=== PATIENT | female | born 1995 | race Caucasian/White ===

== ENCOUNTER → 2021-11-29 15:43 | Outpatient (CLI) | payer OTHER, SELFPAY ==
[2021-11-29 17:39] LABS: Add Manual Diff / Slide Review NO; Basophils Absolute Auto 0 /uL (0-100); Basophils Percent Auto 0.4 % (0-2); Eosinophils Absolute Auto 200 /uL (0-450); Eosinophils Percent Auto 1.6 % (2-4); Hematocrit 34.4 % (36-46); Hemoglobin 11.9 g/dL (12.0-16.0); Lymphocytes Absolute Auto 1900 /uL (1100-4500); Lymphocytes Percent Auto 16.8 % (25-40); Mean Corpuscular HGB Conc 34.6 % (30-36); Mean Corpuscular Hemoglobin 30.3 PG (26-34); Mean Corpuscular Volume 87.5 fL (80-100); Monocytes Absolute Auto 600 /uL (0-900); Monocytes Percent Auto 5.7 % (3-14); Neutrophils Absolute Auto 8400 /uL (1500-7000); Neutrophils Percent Auto 75.5 % (50-75); Platelet Count 316 X10^3/uL (150-400); Red Blood Cell Count 3.93 X10^6/uL (4.0-5.2); Red Cell Distribution Width 12.5 % (11.6-14.8); White Blood Cell Count 11.1 X10^3/uL (4.5-11.0)
[2021-11-30 06:12] LABS: RPR Screen Non Reactive (Non Reactive)
[2021-11-30 07:57] LABS: Varicella IgG Antibody 1102 index (Immune >165)
[2021-12-01 22:51] LABS: HIV 1 & 2 Ab/Ag 4th Gen Combo NEGATIVE (NEGATIVE); Hep C Virus Ab w/Reflex Quant NEGATIVE s/c (NEGATIVE); Hepatitis B Surface Antigen NEGATIVE s/c (NEGATIVE); Rubella Antibody IgG 41.7 IU/mL (>15)
== END ==
PROVIDERS: PCP Physician Assistant; Referring Provider Obstetrics & Gynecology; Visit Provider Obstetrics & Gynecology
DX: Z34.00 Encounter for supervision of normal first pregnancy, unspecified trimester (principal)
CPT/HCPCS: 36415; 80055; 86787; 86803; 86850; 86900; 86901; 87389

== ENCOUNTER → 2022-01-24 12:13 | Outpatient (CLI) | payer OTHER, SELFPAY ==
[2022-01-26 19:47] LABS: AFP, Serum 70.6 ng/mL (.); Estriol, Free 1.36 ng/mL (.); Inhibin A, Dimeric 154.56 pg/mL (.); Inhibin A, MoM 1.03 (.); Maternal Ethnicity Caucasian (.); Maternal Weight 168 lbs (.); Number of Fetuses No (.); OSBR Risk 1 IN 2965 (.); Results Report (.); Test Results *Screen Negative* (.); hCG, Serum 10174 mIU/mL (.)
== END ==
PROVIDERS: PCP Physician Assistant; Referring Provider Obstetrics & Gynecology; Visit Provider Obstetrics & Gynecology
DX: Z34.90 Encounter for supervision of normal pregnancy, unspecified, unspecified trimester (principal); Z3A.16 16 weeks gestation of pregnancy
CPT/HCPCS: 36415; 82105; 82677; 84702; 86336

== ENCOUNTER → 2022-02-22 07:17 | Outpatient (CLI) | payer OTHER, SELFPAY ==
--- NOTE | 2022-02-22 07:18 | DI.US.S_ITS ---
PROCEDURE: US OB >= 14 WEEKS FETUS INDICATIONS: 20 wk anatomy scan OUTSIDE/PRIOR DATING DATA: Last menstrual period (LMP): 09/14/2021. LMP-based estimated date of delivery (ELAINE): 06/21/2022. A first-trimester ultrasound from 11/18/2021 is available. The report from that time indicates an unknown last menstrual period and an estimated date of delivery of 07/05/2022 based on crown-rump length. TECHNIQUE: Real-time scanning was performed of the fetus, with image documentation and biometric measurements. Endovaginal scanning: Not performed COMPARISON: [facility], US, US OB < 14 WEEKS + OB TRANSVAG, 11/18/2021, 7:14. FINDINGS: General: A single living intrauterine gestation is present. Presentation: Cephalic. Placenta: Placental position is anterior , without previa. Amniotic fluid index: 15.3 cm, normal range is 5-24 cm. Single deepest vertical pocket is 4.2 cm. heart rate: 157 beats per minute. Maternal cervical canal: 3.2 cm long. Normal lower limit is 2.5 cm. biometrics: Biparietal diameter: 5.05 centimeters, 21 weeks 2 days Head circumference: 19.63 centimeters, 21 weeks 6 days Abdominal circumference: 16.63 centimeters, 21 weeks 5 days Femur length: 3.64 centimeters, 21 weeks 4 days Clinically estimated gestational age: 23 weeks 0 days Composite gestational age from present scan: 21 weeks 4 days Estimated weight and percentile: 438 grams, 4th percentile for 23 weeks gestational age. Anatomic survey: Neuro: Ventricles are non-dilated at less than 10 mm. Cisterna magna is normal at 3-11 mm. Cerebellum is normal in size and morphology. Nuchal skin fold: Normal at less than 6 mm between 14-21 weeks gestational age. Face: Nose and lips, facial profile are normal. Spine: No evidence for spina bifida. Heart: 4-chambered heart is present, with normal ventricular outflow tracts. Diaphragm: Diaphragm is intact. Stomach: Left-sided stomach is present. Kidneys: No hydronephrosis. Normal is less than 5 mm in 2nd trimester, less than 7 mm in 3rd trimester. Cord: 3-vessel cord has orthotopic insertion. Bladder: Normal in size. Extremities: All 4 extremities identified. IMPRESSION: 1. Single living intrauterine . 2. Estimated delivery date of 07/05/2022 per the 1st trimester ultrasound performed 11/18/2021. This corresponds to a gestational age of 21 weeks 0 days. By LMP, gestational age is 23 weeks 0 days. 3. Estimated weight of 438 grams. For gestational age of 23 weeks 0 days, and this is at the 4th percentile. 4. Normal second trimester anatomy survey. No anomalies detected at this time. We strive to produce accurate, complete, and clear reports of imaging services. To assist us in improving patient care, this report was composed using standard report templates and voice recognition software. Therefore, it may contain abnormal punctuation, insertions and/or omissions. Occasional wrong-word or sound-alike substitutions may occur. Though we review the report and make efforts to correct it, we do recommend that the report be read carefully in proper context to recognize any text inaccuracies. Dictated by: Luis Mcginnis M.D. on 02/22/2022 at 9:23 Approved by: Luis Mcginnis M.D. on 02/22/2022 at 10:19
== END ==
PROVIDERS: PCP Physician Assistant; Referring Provider Obstetrics & Gynecology; Visit Provider Obstetrics & Gynecology
DX: Z34.02 Encounter for supervision of normal first pregnancy, second trimester (principal); Z3A.20 20 weeks gestation of pregnancy
CPT/HCPCS: 76811

== ENCOUNTER → 2022-03-22 08:59 | Outpatient (CLI) | payer OTHER, SELFPAY ==
[2022-03-22 10:34] LABS: Hematocrit 28.2 % (36-46); Hemoglobin 9.9 g/dL (12.0-16.0)
[2022-03-22 10:57] LABS: GTT (PREG) 1 Hour PP 50gm Dose 140 mg/dL (76-139)
== END ==
PROVIDERS: PCP Physician Assistant; Referring Provider Obstetrics & Gynecology; Visit Provider Obstetrics & Gynecology
DX: Z34.01 Encounter for supervision of normal first pregnancy, first trimester (principal); Z3A.26 26 weeks gestation of pregnancy
CPT/HCPCS: 36415; 82950; 85014; 85018

== ENCOUNTER → 2022-03-28 11:28 | Outpatient (CLI) | payer OTHER, SELFPAY ==
[2022-03-28 13:51] LABS: Appearance Urine UA CLEAR; Bilirubin Urine UA NEGATIVE (NEGATIVE); Color Urine UA YELLOW; Glucose Urine UA NEGATIVE (Negative); Ketones Urine UA NEGATIVE (NEGATIVE); Leukocyte Esterase Urine UA 1+ (NEGATIVE); Nitrite Urine UA NEGATIVE (Negative); Occult Blood Urine UA 1+ (Negative); Protein Urine UA NEGATIVE (Negative); Urobilinogen Urine UA 0.2 E.U./dL (0.2)
[2022-03-28 14:02] LABS: Bacteria Urine None Seen; Culture Indicated Urine Cult Not Indicated; RBC Urine 1-5/HPF (0-5/HPF); Squamous Epithelial Cell Urine 10-30 /HPF (0-5/HPF); WBC Urine 1-5/HPF (0-5/HPF)
[2022-03-28 15:17] LABS: Urine N gonorrhoeae NOT DETECTED
[2022-03-28 15:59] LABS: Urine Chlamydia NOT DETECTED
== END ==
PROVIDERS: PCP Physician Assistant; Visit Provider Obstetrics & Gynecology
DX: Z34.02 Encounter for supervision of normal first pregnancy, second trimester (principal); Z11.3 Encounter for screening for infections with a predominantly sexual mode of transmission
CPT/HCPCS: 81003; 81015; 87086; 87491; 87591

== ENCOUNTER → 2022-04-03 07:38 | Outpatient (CLI) | payer OTHER, SELFPAY ==
[2022-04-03 09:04] LABS: Glucose Fasting Gestational 77 mg/dL (76-95)
[2022-04-03 09:38] LABS: Glucose 1 Hour Gest 163 mg/dL (76-180)
[2022-04-03 11:14] LABS: Glucose Tol Interp,Gestational INTERPRETATION
[2022-04-03 12:09] LABS: Glucose 3 Hour Gest 114 mg/dL (76-140)
[2022-04-03 12:19] LABS: Glucose 2 Hour Gest 115 mg/dL (76-155)
== END ==
PROVIDERS: PCP Physician Assistant; Referring Provider Obstetrics & Gynecology; Visit Provider Obstetrics & Gynecology
DX: O99.810 Abnormal glucose complicating pregnancy (principal)
CPT/HCPCS: 36415; 82951; 82952

== ENCOUNTER 2022-06-07 18:11 | Outpatient (CLI) | payer OTHER, SELFPAY ==
[2022-06-07 18:55] LABS: Add Manual Diff / Slide Review NO; Basophils Absolute Auto 0 /uL (0-100); Basophils Percent Auto 0.3 % (0-2); Eosinophils Absolute Auto 200 /uL (0-450); Eosinophils Percent Auto 1.3 % (2-4); Hematocrit 30.3 % (36-46); Hemoglobin 10.3 g/dL (12.0-16.0); Lymphocytes Absolute Auto 2500 /uL (1100-4500); Lymphocytes Percent Auto 18.1 % (25-40); Mean Corpuscular HGB Conc 34.1 % (30-36); Mean Corpuscular Hemoglobin 29.9 PG (26-34); Mean Corpuscular Volume 87.6 fL (80-100); Monocytes Absolute Auto 900 /uL (0-900); Monocytes Percent Auto 6.4 % (3-14); Neutrophils Absolute Auto 10300 /uL (1500-7000); Neutrophils Percent Auto 73.9 % (50-75); Platelet Count 305 X10^3/uL (150-400); Red Blood Cell Count 3.46 X10^6/uL (4.0-5.2); Red Cell Distribution Width 13.7 % (11.6-14.8); White Blood Cell Count 13.9 X10^3/uL (4.5-11.0)
[2022-06-07 19:10] LABS: Alanine Aminotransferase 40 IU/L (<35); Albumin 3.7 g/dL (3.5-5.0); Albumin Globulin Ratio 1.1 (1.0-2.8); Alkaline Phosphatase 145 U/L (38-126); Aspartate Aminotransferase 29 IU/L (14-36); Bilirubin Total 0.4 mg/dL (0.2-1.3); Bilirubin Unconjugated 0.4 mg/dL (0.0-1.1); Globulin 3.4 g/dL (1.7-4.1); HEMOLYSIS < 15 (0-50); Total Protein 7.1 g/dL (6.3-8.2)
[2022-06-07 19:11] LABS: Uric Acid 5.1 mg/dL (2.5-6.2)
--- NOTE | 2022-06-07 19:33 | P.TNLD_ITS ---
Visit Information Visit Information Date of evaluation: 06/07/22 Primary OB Provider: Gabo Del Cid On-call OB Provider: Gabo Del Cid Reason for Evaluation: Yes other Comments/Additional reasons for admission: 27 yo G1 at 37+0 weeks EGA w/ headache, elevated BP (140/90) at home. Patient has a history of ocular migraines but has never taken migraine-specific mediations. Headache is markedly improved and she denies visual changes, or RUQ pain/tenderness. Vital Signs Vital Signs: 108/66, 112. 36.1C [facility] Medical History (Updated 06/07/22 @ 19:50 by Gabo Del Cid MD) Anxiety Asthma Chicken pox Migraines Motion sickness Surgical History (Updated 11/29/21 @ 17:06 by Gabo Del Cid MD) History of throat surgery History of tonsillectomy History of wisdom tooth extraction Ingrown toenail Family History (Updated 11/29/21 @ 17:08 by Gabo Del Cid MD) Mother Hypertension Sister Seizures Father Hypertension Social History marital status: number of children: 0 household members: spouse lives independently: Yes housing: house (base housing) pets and animals: Yes (Dog, Cat - will do litter box) education level: college occupational status: employed ([employer] working for ) current occupational exposures/hazards: No special terri needs: No seatbelt use: always water heater temp set < 120 deg: Yes working smoke detector in home: Yes fire extinguisher in home: Yes carbon monox detector in home: Yes firearms in home: No do you feel safe at home: Yes Smoking Status: Former smoker (In college) second hand exposure: No alcohol intake: former substance use type: does not use during the past year weight has: remained stable well-balanced diet: about half the time daily servings fruits/ve-1 caffeine: Yes (200mg per day) Type(s) of exercise: walking Exam HENMT Head: normal to inspection, normocephalic and atraumatic Eyes General: appearance normal, both eyes and all related structures Resp Effort & Inspection: normal respiratory effort and able to speak in complete sentences Auscultation: clear to auscultation bilaterally Cardio Rate: regular rate Rhythm: regular rhythm Heart Sounds: S1 normal, S2 normal and no murmurs GI Inspection: normal to inspection Palpation: soft and no hepatosplenomegaly Extrem Right lower extremity: normal to inspection Objective Labs Result Diagrams: 06/07/22 18:40 Labs: Laboratory Results - last 24 hr 06/07/22 06/07/22 06/07/22 18:40 18:40 18:40 WBC 13.9 H RBC 3.46 L Hgb 10.3 L Hct 30.3 L MCV 87.6 MCH 29.9 MCHC 34.1 RDW 13.7 Plt Count 305 Neut % (Auto) 73.9 Lymph % (Auto) 18.1 L Liberty % (Auto) 6.4 Eos % (Auto) 1.3 L Baso % (Auto) 0.3 Neut # (Auto) 31048 H Lymph # (Auto) 2500 Liberty # (Auto) 900 Eos # (Auto) 200 Baso # (Auto) 0 Uric Acid 5.1 Total Bilirubin 0.4 Conjugated Bilirubin 0.0 Unconjugated Bilirubin 0.4 AST 29 ALT 40 H Alkaline Phosphatase 145 H Total Protein 7.1 Albumin 3.7 Globulin 3.4 Albumin/Globulin Ratio 1.1 Evaluation Evaluation Baseline heart rate: 135 Variability: Moderate (11-25) monitor accelerations: Present Monitor Decelerations: Absent Uterine Contraction Intensity: Mild Category of Tracing: Reactive Status: Category l Diagnosis, Plan/Disposition Final Diagnosis (1) Ocular migraine: Status: Acute (2) : Status: Acute (3) Elevated liver transaminase level: Status: Acute Plan/Disposition Plan: PIH/PEC labs drawn and are gabby execpt for marginally elevated ALT. F/U scheduled for 06/09/2022 and will recheck BP, labs at that time. OB Disposition: home
[2022-06-07 19:48] LABS: Creatinine Urine Random 39.4 mg/dL; Protein (Total) Urine Random 18 mg/dL (0-12); Protein Creatinine Ratio Urine 0.45 GRAM/24H
== END 2022-06-07 19:52 | disposition home or self-care (01) ==
LOC: OB 06-09 08:03
PROVIDERS: PCP Physician Assistant; Referring Provider Obstetrics & Gynecology; Visit Provider Obstetrics & Gynecology
DX: O26.893 Other specified pregnancy related conditions, third trimester (principal); G43.B0 Ophthalmoplegic migraine, not intractable; R74.01 Elevation of levels of liver transaminase levels; R03.0 Elevated blood-pressure reading, without diagnosis of hypertension; Z3A.37 37 weeks gestation of pregnancy
CPT/HCPCS: 59025; 59050; 80076; 82570; 84156; 84550; 85025; G0378; G0379

== ENCOUNTER → 2022-06-09 16:34 | Outpatient (CLI) | payer OTHER, SELFPAY ==
[2022-06-10 14:07] LABS: Strep Grp B PCR NEG for Grp B Strep
== END ==
PROVIDERS: PCP Physician Assistant; Visit Provider Obstetrics & Gynecology
DX: Z34.03 Encounter for supervision of normal first pregnancy, third trimester (principal); Z3A.36 36 weeks gestation of pregnancy
CPT/HCPCS: 87653

== ENCOUNTER → 2022-06-16 15:13 | Outpatient (CLI) | payer OTHER, SELFPAY ==
[2022-06-16 15:58] LABS: Protein (Total) Urine Random 18 mg/dL (0-12); Protein Creatinine Ratio Urine 0.17 GRAM/24H
[2022-06-16 18:09] LABS: Add Manual Diff / Slide Review NO; Basophils Absolute Auto 0 /uL (0-100); Basophils Percent Auto 0.2 % (0-2); Eosinophils Absolute Auto 100 /uL (0-450); Eosinophils Percent Auto 0.5 % (2-4); Hematocrit 31.5 % (36-46); Hemoglobin 10.8 g/dL (12.0-16.0); Lymphocytes Absolute Auto 2300 /uL (1100-4500); Lymphocytes Percent Auto 16.2 % (25-40); Mean Corpuscular HGB Conc 34.5 % (30-36); Mean Corpuscular Hemoglobin 30.4 PG (26-34); Mean Corpuscular Volume 88.3 fL (80-100); Monocytes Absolute Auto 900 /uL (0-900); Monocytes Percent Auto 6.2 % (3-14); Neutrophils Absolute Auto 10700 /uL (1500-7000); Neutrophils Percent Auto 76.9 % (50-75); Platelet Count 331 X10^3/uL (150-400); Red Blood Cell Count 3.57 X10^6/uL (4.0-5.2); Red Cell Distribution Width 14.4 % (11.6-14.8); White Blood Cell Count 13.9 X10^3/uL (4.5-11.0)
[2022-06-16 18:24] LABS: Alanine Aminotransferase 46 IU/L (<35); Albumin 3.7 g/dL (3.5-5.0); Albumin Globulin Ratio 1.1 (1.0-2.8); Alkaline Phosphatase 162 U/L (38-126); Aspartate Aminotransferase 34 IU/L (14-36); Bilirubin Total 0.4 mg/dL (0.2-1.3); Bilirubin Unconjugated 0.4 mg/dL (0.0-1.1); Globulin 3.4 g/dL (1.7-4.1); HEMOLYSIS < 15 (0-50); Total Protein 7.1 g/dL (6.3-8.2); Uric Acid 6.2 mg/dL (2.5-6.2)
== END ==
PROVIDERS: PCP Physician Assistant; Referring Provider Obstetrics & Gynecology; Visit Provider Obstetrics & Gynecology
DX: R03.0 Elevated blood-pressure reading, without diagnosis of hypertension (principal); R74.01 Elevation of levels of liver transaminase levels
CPT/HCPCS: 36415; 80076; 82570; 84156; 84550; 85025

== ENCOUNTER → 2022-06-22 14:19 | Outpatient (CLI) | payer OTHER, SELFPAY | PROVIDERS: PCP Physician Assistant; Visit Provider Obstetrics & Gynecology | DX: Z34.03 Encounter for supervision of normal first pregnancy, third trimester (principal); Z3A.38 38 weeks gestation of pregnancy | CPT/HCPCS: 87086 ==

== ENCOUNTER 2022-07-04 01:19 | Inpatient (IN) | payer OTHER, SELFPAY ==
[2022-07-04] MEDS: LACTATED RINGERS 1,000 ML 100 ML IV (02:45)
[2022-07-04 03:03] VITALS: BP 128/83
[2022-07-04 03:03] LABS: Add Manual Diff / Slide Review NO; Basophils Absolute Auto 0 /uL (0-100); Basophils Percent Auto 0.3 % (0-2); Eosinophils Absolute Auto 0 /uL (0-450); Eosinophils Percent Auto 0.1 % (2-4); Hematocrit 32.1 % (36-46); Hemoglobin 10.7 g/dL (12.0-16.0); Lymphocytes Absolute Auto 1900 /uL (1100-4500); Lymphocytes Percent Auto 14.4 % (25-40); Mean Corpuscular HGB Conc 33.2 % (30-36); Mean Corpuscular Hemoglobin 29.5 PG (26-34); Mean Corpuscular Volume 88.7 fL (80-100); Monocytes Absolute Auto 700 /uL (0-900); Monocytes Percent Auto 5.2 % (3-14); Neutrophils Absolute Auto 10700 /uL (1500-7000); Platelet Count 321 X10^3/uL (150-400); Red Blood Cell Count 3.62 X10^6/uL (4.0-5.2); Red Cell Distribution Width 14.6 % (11.6-14.8); White Blood Cell Count 13.4 X10^3/uL (4.5-11.0)
[2022-07-04 03:06] LABS: Alanine Aminotransferase 77 IU/L (<35); Albumin 3.7 g/dL (3.5-5.0); Alkaline Phosphatase 220 U/L (38-126); Aspartate Aminotransferase 51 IU/L (14-36); BUN Creatinine Ratio 9.5 (6-22); Bilirubin Total 0.7 mg/dL (0.2-1.3); Blood Urea Nitrogen 6 mg/dL (7-17); Calcium 8.6 mg/dL (8.4-10.2); Carbon Dioxide 19 mmol/L (22-32); Chloride 105 mmol/L (98-107); Estimated Glomerular Filt Rate > 60 mL/min (>60); Globulin 3.6 g/dL (1.7-4.1); Glucose 90 mg/dL (70-100); HEMOLYSIS < 15 (0-50); Potassium 3.6 mmol/L (3.4-5.1); Sodium 133 mmol/L (137-145); Total Protein 7.3 g/dL (6.3-8.2)
[2022-07-04 04:13] LABS: COVID19 -Nasal RAPID Negative (Negative)
--- NOTE | 2022-07-04 06:11 | P.HPOB_ITS ---
OB HPI Date/Time Date of admission: 07/04/22 Date Patient Seen: 07/04/22 Time Patient Seen: 02:30 History of Present Condition Chief complaint: LABOR ELAINE Calculator Estimated Delivery Date Method Current WG Current Estimate 07/05/22 Ultrasound #1 39w 6d Other Estimates 06/30/22 LMP (Uncertain) 40w 4d Estimated Gestational Age (weeks): 39 : 1 Para: 0 Narrative: Daphnie is a 27 yo G1 who presents at 39weeks 6days EGA with uncomfortable contractions. Over the past day she has had contractions which have progressively become more frequent and more intense. Contractions became every 5 minutes and were very uncomfortable, she called and was brought in to the birthing center for evaluation. She denies any leakage of fluid or vaginal bleeding. She did see a little pink in some mucus plug she passed a day ago. She has had nausea and emesis through the day, no diarrhea. She has felt well otherwise. She denies headache, scotomata and abdominal pain between contractions. has been uncomplicated. She has had a mildly elevated ALT/AST on preeclamptic labs, but with normal BP. Labs were checked due to patient having an isolated reading of an elevated blood pressure at home, in birthing center her blood pressure was normal. She had a borderline elevated 1 hour Glucola, 3 hour GTT was normal. care: good care Dating criteria OB: based on 1st trimester US only ( Consistent with LMP ELAINE within 5 days) Ultrasounds: normal 1st trimester US and normal mid trimester US Obstetrical complications: none Medical complications OB: none Preadmission Labs Last OB Lab Results: Blood Type B Positive 07/04/22 02:30 Antibody Screen Negative 07/04/22 02:30 Hematocrit 32.1 % (36-46) L 07/04/22 02:30 Hemoglobin 10.7 g/dL (12.0-16.0) L 07/04/22 02:30 Hepatitis B Surface Antigen Negative s/c (NEGATIVE) 11/29/21 15 :49 Hepatitis C Antibody Negative s/c (NEGATIVE) 11/29/21 15:49 Rubella Antibody 41.7 IU/mL (>15) 11/29/21 15:49 Varicella-Zoster IgG Antibody 1102 index (Immune >165) 11/29/21 15:49 Glucose 1 Hour 140 mg/dL (76-139) H 03/22/22 10:07 Group B Streptococcus (PCR) Neg for grp b strep 06/09/22 16:34 Glucose Tolerance Testing: Fasting (77), 1 hr (163), 2 hr (115) and 3 hr (114) -: Chlamydia screen: negative and Gonorrhea screen: negative Genetic Screens: Quad screen: Normal Evaluation Evaluation Baseline heart rate: 135 Variability: Moderate (11-25) monitor accelerations: Present Monitor Decelerations: Absent Contraction Frequency (minutes): 3 Uterine Contraction Intensity: Moderate Category of Tracing: Reactive Status: Category l Dilation (cm): 6 Effacement (%): 80 Dilation: >/=5 cm Effacement: >/=80% station: -1 Position of cervix: anterior Consistency: soft Todd score: 12 Comments: Exam at 3:00 a.m. by stretchy 6 cm/ 80 /-2 cervix posterior repeat exam at 0 600 by titer 6 cm/ 80%/ -1, cervix anterior, bulging membranes PFSH Medical History Anxiety Asthma Chicken pox Migraines Motion sickness Surgical History History of throat surgery History of tonsillectomy History of wisdom tooth extraction Ingrown toenail Family History (Updated 11/29/21 @ 17:08 by Gabo Del Cid MD) Mother Hypertension Sister Seizures Father Hypertension Social History marital status: number of children: 0 household members: spouse lives independently: Yes housing: house (base housing) pets and animals: Yes (Dog, Cat - will do litter box) education level: college occupational status: employed ([employer] working for [employer]) current occupational exposures/hazards: No special terri needs: No seatbelt use: always water heater temp set < 120 deg: Yes working smoke detector in home: Yes fire extinguisher in home: Yes carbon monox detector in home: Yes firearms in home: No do you feel safe at home: Yes Smoking Status: Never smoker second hand exposure: No alcohol intake: former substance use type: does not use during the past year weight has: remained stable well-balanced diet: about half the time daily servings fruits/ve-1 caffeine: Yes (200mg per day) Type(s) of exercise: walking Meds Home Medications and Allergies Home Medications Medication Instructions Recorded Confirmed Type prenat.vits,sergey,hwr-jhro-claot 1 tab PO DAILY 11/07/21 07/04/22 History doxylamine succinate 25 mg tablet 25 mg PO BEDTIME PRN Sleep 11/21/21 07/04/22 History (Unisom (doxylamine)) meclizine 25 mg tablet 25 mg PO BID PRN 11/21/21 06/29/22 History pyridoxine (vitamin B6) 100 mg 100 mg PO QID 11/21/21 07/04/22 History tablet Allergies Allergy/AdvReac Type Severity Reaction Status Date / Time Latex, Natural Rubber Allergy Mild ITCHING Verified 06/29/22 09:20 OB Exam Narrative Exam Narrative: Vital signs: Temp 36.3C BP 128/83 Pulse 117 > decreased to 93 Resp Effort & Inspection: normal respiratory effort and able to speak in complete sentences Cardio Rate: regular rate Objective Labs Result Diagrams: 07/04/22 02:30 07/04/22 02:30 Labs: Laboratory Results - last 24 hr 07/04/22 07/04/22 07/04/22 01:47 02:30 02:30 WBC 13.4 H RBC 3.62 L Hgb 10.7 L Hct 32.1 L MCV 88.7 MCH 29.5 MCHC 33.2 RDW 14.6 Plt Count 321 Neut % (Auto) 80.0 H Lymph % (Auto) 14.4 L Tillman % (Auto) 5.2 Eos % (Auto) 0.1 L Baso % (Auto) 0.3 Neut # (Auto) 52044 H Lymph # (Auto) 1900 [place] # (Auto) 700 Eos # (Auto) 0 Baso # (Auto) 0 Sodium Potassium Chloride Carbon Dioxide BUN Creatinine Estimated GFR BUN/Creatinine Ratio Glucose Calcium Total Bilirubin AST ALT Alkaline Phosphatase Total Protein Albumin Globulin Albumin/Globulin Ratio SARS-CoV-2 (PCR) Negative Blood Type B Positive Antibody Screen Negative 07/04/22 02:30 WBC RBC Hgb Hct MCV MCH MCHC RDW Plt Count Neut % (Auto) Lymph % (Auto) Tillman % (Auto) Eos % (Auto) Baso % (Auto) Neut # (Auto) Lymph # (Auto) Tillman # (Auto) Eos # (Auto) Baso # (Auto) Sodium 133 L Potassium 3.6 Chloride 105 Carbon Dioxide 19 L BUN 6 L Creatinine 0.63 Estimated GFR > 60 BUN/Creatinine Ratio 9.5 Glucose 90 Calcium 8.6 Total Bilirubin 0.7 AST 51 H ALT 77 H Alkaline Phosphatase 220 H Total Protein 7.3 Albumin 3.7 Globulin 3.6 Albumin/Globulin Ratio 1.0 SARS-CoV-2 (PCR) Blood Type Antibody Screen Assessment and Plan Assessment and Plan Assessment and Plan narrative: 27 yo G1 @ 39wk6d presented in early labor, now developing active labor. GBS negative. normal BP - recent mild elevated ALT without other abnormal lab values nor signs or symptoms of preeclampsia. Plan: Admitted labs: CBC, CMP ordered for baseline due to recent mild elevated ALT. Both ALT and AST are now mildly elevated. Her blood pressure has been normal. Will add on a urine protein/ creatinine ratio screen. She desires to go as far as possible without pain medicine and is coping very well. Recheck cervix in a few hours.
[2022-07-04] MEDS: ONDANSETRON 4 MG/2 ML INJ IV (07:42)
[2022-07-04 10:01] LABS: Protein (Total) Urine Random 34 mg/dL (0-12); Protein Creatinine Ratio Urine 0.35 GRAM/24H
[2022-07-04] MEDS: fentaNYL 100 MCG/2 ML INJ 50 MCG IV ×2 (11:45→13:17)
--- NOTE | 2022-07-04 12:42 | PM.OBPNLAB ---
Date/Time Date Patient Seen: 07/04/22 Time Patient Seen: 11:40 Pain Control Pain control: tolerating well and narcotic analgesia Pelvic Exam Dilation (cm): 7 Effacement (%): 100 station: -1 Amniotic membrane status: Ruptured Comments: AROM clear fluid 11:40 Contractions Contractions on admission: irregular Monitor mode: External Contraction frequency (min): 5 Contraction duration (min): 1 Contraction pattern: Irregular Contraction phase: Resting Contraction intensity: Moderate Status status: Category l Heart Rate Baseline: 140 Monitor Accelerations: Present Monitor Decelerations: Absent Monitor Variability: Moderate Assessment and Plan Assessment: active labor Plan: continuous present management Comments: Anticipate increased contraction intensity following AROM. Patient currently wants to use IV narcotics for pain relief due to her concern that an epidural will worsen her chronic low back pain.
--- NOTE | 2022-07-04 16:54 | P.PNOB_ITS ---
Date/Time Date Patient Seen: 07/04/22 Time Patient Seen: 16:55 Pain Control Comments: Patient has requested BERNABE, anesthesia notified. Pelvic Exam Dilation (cm): 8 Effacement (%): 100 station: 0 Amniotic membrane status: Ruptured Contractions Monitor mode: External Contraction frequency (min): 3 Contraction duration (min): 1 Contraction pattern: Regular Contraction phase: Resting Contraction intensity: Moderate Status status: Category l Heart Rate Baseline: 140 Monitor Accelerations: Present Monitor Decelerations: Absent Monitor Variability: Moderate Assessment and Plan Assessment: active labor Comments: Patient was thought by nursing staff to be 9+ cm but upon recheck, patient is o nly 8 cm with the vertex at 0 station. Absent significant change, patient requests placement of BERNABE for comfort and hopefully some relaxation of pelvic musculature.
--- NOTE | 2022-07-04 17:52 | PM.OBPNLAB ---
Date/Time Date Patient Seen: 07/04/22 Time Patient Seen: 17:53 Pain Control Pain control: tolerating well Pelvic Exam Dilation (cm): 9 Effacement (%): 100 station: +1 Amniotic membrane status: Ruptured Comments: Light meconium staining noted Contractions Contractions on admission: irregular Monitor mode: External Pitocin rate (mU/min): 0 Contraction frequency (min): 3 Contraction duration (min): 1 Contraction pattern: Regular Contraction phase: Resting Contraction intensity: Moderate Status status: Category l Heart Rate Baseline: 140 Monitor Accelerations: Present Monitor Decelerations: Variable (Intermittent since BERNABE placement) Monitor Variability: Moderate Assessment and Plan Assessment: active labor Plan: continuous present management Comments: Close observation for resolution of variables or persistent category 2 tracing. Will recheck cervix in 30-60 minutes. Anticipate .
[2022-07-04] MEDS: FENT 2MCG/ML BUPIV 0.125% EPI 200 MCG/100 ML PLAST..BAG 6 MCG EPIDURAL (18:57)
--- NOTE | 2022-07-04 18:59 | PM.OBPNLAB ---
Date/Time Date Patient Seen: 07/04/22 Time Patient Seen: 18:59 Pain Control Pain control: tolerating well and epidural Pelvic Exam Dilation (cm): 9 Effacement (%): 100 station: +1 Amniotic membrane status: Ruptured Comments: Direct OA, perhaps 5 degrees left of ML. Assynclitic to the left 5-10 degrees. No caput, no moulding. Pelvic adequate with ISD > 10 cm, APD > 12. Contractions Monitor mode: External Contraction frequency (min): 4 Contraction duration (min): 1 Contraction pattern: Regular Contraction phase: Resting Contraction intensity: Moderate Status status: Category l Heart Rate Baseline: 140 Monitor Accelerations: Present Monitor Decelerations: Variable (Occasional) Monitor Variability: Moderate Assessment and Plan Assessment: active labor Plan: begin patient augmentation Comments: Will begin augmentation as pelvis seems adequate. Left lateral labor position w/ peanut ball. She may labor down as needed. Still anticipate . I will be out of the area attending to family matters and Dr. Elizabeth Sarkar will be available to cover for me until my return. Nursing staff and patient/family also aware.
[2022-07-04] MEDS: OXYTOCIN PREMIX 30 UNIT/500 ML PLAST..BAG IV (19:04)
[2022-07-04] MEDS: CALCIUM CARBONATE 500 MG TAB PO (20:38)
--- NOTE | 2022-07-04 22:22 | PM.OBPRVD ---
Events: Labor Augmentation and Meconium Stained Fluid Labor & Delivery Delivery date: 07/04/22 Cervical ripening method: none Induction method: none Delivery augmentation: rupture of membranes and pitocin Delivery monitor: external FHT and external uterine Route of delivery: Episiotomy description: None L&D Laceration Description: Perineal - 2nd Degree Delivery repair: chromic (3.0) Quantitative Blood Loss: 300 Anesthesia Type: Epidural Narrative: CNM called to attend delivery at C/C/+1. Patient pushed well with coaching and encouragement. Pushing occurred with every other contraction because of maternal fatigue and FHR during a 1hr 35 minute second stage. RT was called to standby for the for meconium stained amniotic fluid. NSVB of a viable baby boy in ADIA position. Large loop of cord delivered with the head. There was no nuchal cord and the shoulders delivered without additional maneuvers. Hudson was dried prior to placing on maternal abdomen, at patient's request. Remaining 30 units of pitocin in 500mL LR was increased to 250mL/hr for active management of the 6 minute third stage of labor. After cessation of pulsation, the cord was double clamped by CNM and cut by FOB. Hospital cord blood sample was collected. Gentle cord traction and single maternal push led to spontaneous, Schultze delivery of an apparently intact placenta, membranes and 3VC. A second degree perineal laceration was repaired with 3.0 chromic in the usual fashion, under adequate epidural anesthesia. Fundus was immediately firm and bleeding scant. QBL 300mL. Both mother and baby stable and skin to skin as I left the room. Hudson Baby 1: Infant gender: Male Presentation: vertex Position: Right Occiput Anterior Placenta delivery description: Spontaneous and Normal Configuration Cord Vessel Description: 3 Vessels score (1 min): 8 score (5 min): 9 weight: 3.339 kg Plan for aftercare: Routine care
[2022-07-05 00:26] VITALS: TEMP 36.9
[2022-07-05] MEDS: KETOROLAC 30 MG/ML VIAL IV (00:26)
[2022-07-05] MEDS: DERMOPLAST SPRAY 20% 60 ML 1 SPRAY TOP (01:04)
[2022-07-05 07:00] VITALS: BP 113/73; PULSE 81; RESP 16; TEMP 36.3
[2022-07-05] MEDS: DOCUSATE 100 MG CAPSULE PO (09:23)
[2022-07-05] MEDS: LANOLIN OINT 7 GM 1 APPLIC TOP (20:28)
--- NOTE | 2022-07-05 21:05 | PM.OBPN.1 ---
Subjective - OB Subjective Patient comments: no complaints and pain well controlled baby status: doing well feeding status: exclusively breast feeding Narrative: Doing well. Some latching issues on the left but working through those with care consultant. Mild perinal pain. Voiding OK. + flatus. Date Patient Seen: 07/05/22 Time Patient Seen: 12:30 Exam Const General: cooperative and comfortable Nutritional Appearance: average body habitus Orientation: alert and oriented x3 HENMT Head: normal to inspection, atraumatic and abrasion Ears: hearing grossly normal bilaterally Face and sinus: face symmetric Eyes General: appearance normal, both eyes and all related structures Conjunctivae: conjunctivae normal Sclera: sclerae normal EOM: EOM intact bilaterally Neck Neck: normal visual inspection Resp Effort & Inspection: normal respiratory effort and able to speak in complete sentences GI Inspection: normal to inspection Palpation: soft and no hepatosplenomegaly External Female Exam: other (Intact, light lochia) Extrem General: no calf tenderness Psych Appearance: grossly normal Mental Status: mental status grossly normal Speech and Movement: speech and movement normal Mood: congruent mood Affect: normal affect Attitude: cooperative Thought Process: normal Thought Content: normal Judgment: judgment good Objective Labs Result Diagrams: 07/04/22 02:30 07/04/22 02:30 Assessment & Plan Assessment and Plan (1) Normal vaginal delivery: Status: Acute Plan day: 1 plan OB: routine care Comments: Anticipate D/C in AM Time Spent With Patient Time: Total time spent is greater than 50% in coordination of care (as documented) at patient's floor/unit and/or counseling patient: Time with patient: 15-24 minutes
[2022-07-06] MEDS: DOCUSATE 100 MG CAPSULE PO (09:01)
--- NOTE | 2022-07-06 09:32 | P.DS_ITS ---
Discharge Providers Provider Date of admission: 07/04/22 01:19 Discharge Date: 07/06/22 Primary care physician: Victor Hugo Ulloa PA-C Consults: 07/05/22 22:20 Consult to [employer] Routine Comment: Discharge provider: Gabo Del Cid MD Summary Hospital Course Date Patient Seen: 07/06/22 Time Patient Seen: 09:32 Diagnoses: Intrauterine gestation, 39+ 6 weeks gestational age, delivered via spontaneous vaginal Hospital Course: Daphnie was admitted in the early active phase of labor on the morning of 07/04/2022 in progressed spontaneously until the evening of 07/04/2022 when she required placement of a continuous lumbar epidural catheter for pain relief in late 2nd stage of labor. She also required Pitocin augmentation for hypotonic uterine dysfunction at that point in then delivered spontaneously late on the evening of 07/04/2022 attended by Yessenia Mckeon CNM. She sustained a second-degree midline perineal laceration which was repaired in the usual manner. Following delivery both she and her baby have done extremely well with the mother experiencing prompt return of bowel and bladder function, she is ambulating independently, tolerating a regular diet, and her pain is relieved without medication. She will be discharged at this time in an afebrile normotensive condition to home after counseling regarding precautionary symptoms, limitations activity, medications, and plans for follow-up. There be no prescribed medications at the time of discharge but she will continue taking her vitamins daily. Follow-up will be in 6 weeks or as needed. Peripartum Data Laceration Description: Perineal - 2nd Degree Episiotomy description: None complications: none Discharge Diagnosis (1) Normal vaginal delivery: Status: Acute Status at Discharge Cognitive/behavioral status at discharge: oriented Overall status at discharge: patient is progressing back to baseline Time Spent with Patient Time attestation: Total time spent providing and/or coordinating discharge services: Time spent: Less than 30 minutes Objective Labs Result Diagrams: 07/04/22 02:30 07/04/22 02:30 Exam Const General: cooperative and comfortable Nutritional Appearance: average body habitus Orientation: alert and oriented x3 HENMT Head: normal to inspection, atraumatic and abrasion Ears: hearing grossly normal bilaterally Face and sinus: face symmetric Eyes General: appearance normal, both eyes and all related structures Conjunctivae: conjunctivae normal Sclera: sclerae normal EOM: EOM intact bilaterally Neck Neck: normal visual inspection Resp Effort & Inspection: normal respiratory effort and able to speak in complete sentences GI Inspection: normal to inspection Palpation: soft and no hepatosplenomegaly External Female Exam: other (Intact w/ minimal swelling) Extrem General: no calf tenderness Psych Appearance: grossly normal Mental Status: mental status grossly normal Speech and Movement: speech and movement normal Mood: congruent mood Affect: normal affect Attitude: cooperative Thought Process: normal Thought Content: normal Judgment: judgment good Discharge Plan Discharge Plan Patient Disposition: Home Provider Discharge Comment: Please review the written instructions you received when you were discharged from the hospital. Your visit will be scheduled for 6 weeks after delivery and I look forward to seeing you then. If in the meanwhile however you have any issues, concerns, questions or problems, please contact me either through the office phone at [phone] or via the patient portal. Discharge orders & Medications Prescriptions: Continued prenat.vits,sergey,[id number] Tablet 1 tab PO DAILY Discontinued Unisom (doxylamine) 25 mg tablet 25 mg PO BEDTIME PRN (Reason: Sleep) pyridoxine (vitamin B6) 100 mg tablet 100 mg PO QID meclizine 25 mg tablet 25 mg PO BID PRN Follow up/Referrals: Gabo Del Cid MD [Physician] - 08/15/22 9:30 am (please follow up w/ Dr. Del Cid ) Discharge Health Status Multidrug resistant organism: No MDRO Diet/Activity/Treatments Diet: Diet as Tolerated Activity: As tolerated Other treatments: [id number]-yxesmtp Tylenol and/or ibuprofen they be used for pain relief. Hckj-vhi-hfmcumb stool softeners and/or MiraLax may be used for constipation. Skin/Wound/Dressing Care Report to your healthcare provider any signs of infection, such as:: chills, fever, increased pain, unusual drainage and unusual redness Dressing: Not applicable Visit Report/Discharge Packet Instructions: DI for Labor and Delivery, Vaginal , DI for and Nipple Soreness Stand Alone Forms: Discharge: Care Discharge Data Primary Care Provider: Victor Hugo Ulloa
== END 2022-07-06 11:52 | disposition home or self-care (01) | DRG 807 ==
PROVIDERS: Admitting Provider Obstetrics & Gynecology; PCP Physician Assistant; Referring Provider Obstetrics & Gynecology; Visit Provider Obstetrics & Gynecology
DX: O76 Abnormality in fetal heart rate and rhythm complicating labor and delivery (principal); Z37.0 Single live birth; O70.1 Second degree perineal laceration during delivery; Z3A.39 39 weeks gestation of pregnancy; Z20.822 Contact with and (suspected) exposure to COVID-19
CPT/HCPCS: 36415; 59050; 80053; 82570; 84156; 85025; 86850; 86900; 86901; 87635; C9803; G0379; J1885; J2405; J2590; J3010

== ENCOUNTER → 2023-05-15 08:21 | Outpatient (CLI) | payer OTHER, SELFPAY ==
--- NOTE | 2023-05-15 08:22 | DI.US.S_ITS ---
PROCEDURE: US OB <= 14 WEEKS FETUS INDICATIONS: DATING AND VIABILTY OUTSIDE/PRIOR DATING DATA: Last menstrual period (LMP): March 06, 2023. LMP-based estimated date of delivery (ELAINE): December 11, 2023. First dating scan (date and location): [facility] TECHNIQUE: Real-time scanning was performed of the fetus and maternal pelvic organs, with image documentation. Endovaginal scanning was also performed to better visualize the fetus and maternal ovaries. COMPARISON: None. FINDINGS: Embryo: A questionable pole is visualized which measures 0.38 cm in length. This corresponds with a gestational age of 6 weeks, 0 days. Heart rate: No heart tones detected. There is a 1.7 x 2.2 x 1.7 cm perigestational hemorrhage. Maternal organs: Ovaries not visualized. IMPRESSION: 1. Questionable pole measured at 6 weeks, 0 days visualized without heart tones. Size is less than dates by LMP. Differential considerations include early dates and demise. Close clinical and sonographic surveillance recommended. 2. Perigestational hemorrhage as above. We strive to produce accurate, complete, and clear reports of imaging services. To assist us in improving patient care, this report was composed using standard report templates and voice recognition software. Therefore, it may contain abnormal punctuation, insertions and/or omissions. Occasional wrong-word or sound-alike substitutions may occur. Though we review the report and make efforts to correct it, we do recommend that the report be read carefully in proper context to recognize any text inaccuracies. Dictated by: Julissa Dunaway M.D. on 05/15/2023 at 12:47 Approved by: Julissa Dunaway M.D. on 05/15/2023 at 12:50
== END ==
PROVIDERS: PCP Physician Assistant; Referring Provider Specialist; Visit Provider Specialist
DX: O36.80X0 Pregnancy with inconclusive fetal viability, not applicable or unspecified (principal); Z3A.01 Less than 8 weeks gestation of pregnancy
CPT/HCPCS: 76801; 76830; 93975

== ENCOUNTER 2023-05-20 20:15 | Emergency (ER) | payer OTHER, SELFPAY ==
[2023-05-20] VITALS (15 sets, daily range): BP systolic 81–130; BP diastolic 49–78; PULSE 79–112; RESP 13–23; TEMP 36.8; O2SAT 97–100; BMI 29.2
--- NOTE | 2023-05-20 20:18 | DI.US.S_ITS ---
PROCEDURE: US OB >= 14 WEEKS FETUS INDICATIONS: Miscarriage OUTSIDE/PRIOR DATING DATA: Last menstrual period (LMP): 03/06/2023 LMP-based estimated date of delivery (ELAINE): 12/11/2023 First dating scan (date and location): 05/15/2023 Estimated date of delivery (ELAINE) from first dating scan: Not applicable. TECHNIQUE: Real-time scanning was performed of the fetus, with image documentation. Endovaginal scanning: Performed COMPARISON: None. FINDINGS: General: Single irregular-appearing intrauterine gestational sac is seen in the lower uterine segment with fetus noted. [place]-rump length measures 0.6 cm. Estimated gestational age based on current study is 6 weeks, 2 days. Estimated gestational age based on initial study is 10 weeks, 5 days. IMPRESSION: Finding is consistent with intrauterine demise and likely spontaneous in progress. We strive to produce accurate, complete, and clear reports of imaging services. To assist us in improving patient care, this report was composed using standard report templates and voice recognition software. Therefore, it may contain abnormal punctuation, insertions and/or omissions. Occasional wrong-word or sound-alike substitutions may occur. Though we review the report and make efforts to correct it, we do recommend that the report be read carefully in proper context to recognize any text inaccuracies. Dictated by: Edis Starkey M.D. on 05/20/2023 at 21:16 Approved by: Edis Starkey M.D. on 05/20/2023 at 21:21
[2023-05-20] MEDS: MORPHINE 4 MG/ML INJ IV (21:25)
[2023-05-20] MEDS: KETOROLAC 30 MG/ML VIAL 15 MG IV (21:25)
[2023-05-20] MEDS: SODIUM CHLORIDE 0.9% 1,000 ML 1000 ML IV ×2 (21:25→21:30)
[2023-05-20 21:26] LABS: Add Manual Diff / Slide Review NO; Basophils Absolute Auto 100 /uL (0-100); Basophils Percent Auto 0.5 % (0-2); Eosinophils Absolute Auto 100 /uL (0-450); Eosinophils Percent Auto 0.9 % (2-4); Hematocrit 29.1 % (36-46); Hemoglobin 10.1 g/dL (12.0-16.0); Lymphocytes Absolute Auto 1600 /uL (1100-4500); Lymphocytes Percent Auto 12.5 % (25-40); Mean Corpuscular HGB Conc 34.8 % (30-36); Mean Corpuscular Hemoglobin 30.7 PG (26-34); Mean Corpuscular Volume 88.1 fL (80-100); Monocytes Absolute Auto 800 /uL (0-900); Monocytes Percent Auto 6.1 % (3-14); Neutrophils Absolute Auto 10300 /uL (1500-7000); Platelet Count 258 X10^3/uL (150-400); Red Blood Cell Count 3.31 X10^6/uL (4.0-5.2); Red Cell Distribution Width 12.7 % (11.6-14.8); White Blood Cell Count 12.8 X10^3/uL (4.5-11.0)
--- NOTE | 2023-05-20 21:30 | ED.PREGNANCY ---
HPI - General Chief complaint: Vaginal Bleeding Stated complaint: spontaneous AB- abd. Time Seen by Provider: 05/20/23 20:18 Source: patient and EMS Mode of arrival: EMS Limitations: no limitations History of Present Illness HPI Narrative: Patient 27-year-old female history presenting today with vaginal bleeding and probable spontaneous miscarriage. She has increased bleeding going through 3 pads in 1 hour. No dizziness or lightheadedness. Not she is in the ED she is having severe abdominal cramping. She had an ultrasound done 5 days ago which did show demise. Related Data Home Medications Medication Instructions Recorded Confirmed prenat.vits,sergey,[id number] 1 tab PO DAILY 11/07/21 05/14/23 Allergies Allergy/AdvReac Type Severity Reaction Status Date / Time Latex, Natural Rubber Allergy Mild ITCHING Verified 05/14/23 08:05 Review of Systems Review of Systems ROS Unobtainable: All systems reviewed & are unremarkable except as noted in HPI and below Exam Initial Vital Signs Initial Vital Signs: Vital Signs Temperature 98.2 F 05/20/23 20:15 Pulse Rate 101 H 05/20/23 20:15 Respiratory Rate 16 05/20/23 20:15 Blood Pressure 130/78 05/20/23 20:15 Pulse Oximetry 97 05/20/23 20:15 Oxygen Delivery Method Room Air 05/20/23 20:15 GENERAL: Alert 27-year-old female appears in severe pain HEENT: Head atraumatic,EOMI, pupils reactive, face symmetric, [moist] mucous membranes CARDIOVASCULAR: Regular rate and rhythm without murmurs, rubs or gallops. RESPIRATORY: Breath sounds equal bilaterally, no wheezes rales or rhonchi. ABDOMEN: Soft, nontender. Normoactive bowel sounds all 4 quadrants. No guarding or rebound. PELVIC: External genitalia is normal, no vaginal discharge, no odor, cervical os is open tilted posteriorly no obvious tissue at there is vaginal bleeding not significant EXTREMITIES: Normal range of motion, no clubbing or edema. Neurovascularly intact NEUROLOGICAL: Alert and oriented x4.Normal gait and speech. SKIN: Warm, dry, no laceration, no petechiae, no rashes or lesions. Course Orders Ordered: ED Orders 05/20/23 21:10 CBC Auto Diff [Complete Blood Count AUTO DIFF] Stat CMP [Comprehensive Metabolic Panel] Stat HCG Quantitative /Beta subunit Stat Discontinued Medications Sodium Chloride (Normal Saline 0.9%) 1,000 mls @ 1,000 mls/hr IV BOLUS ONE Stop: 05/20/23 22:14 Last Infusion: 05/20/23 22:01 Dose: Infused Documented By: Admin: 05/20/23 21:25 Dose: 1,000 mls/hr Documented By: JUWAN Sodium Chloride (Normal Saline 0.9%) 1,000 mls @ 1,000 mls/hr IV BOLUS ONE Stop: 05/20/23 23:01 Last Infusion: 05/20/23 22:30 Dose: Infused Documented By: Admin: 05/20/23 21:30 Dose: 1,000 mls/hr Documented By: JUWAN Ketorolac Tromethamine (Ketorolac 30 Mg/Ml Vial) 15 mg IV NOW ONE Stop: 05/20/23 21:17 Last Admin: 05/20/23 21:25 Dose: 15 mg Documented By: JUWAN Morphine Sulfate (Morphine 4 Mg/Ml Inj) 4 mg IV NOW ONE Stop: 05/20/23 21:17 Last Admin: 05/20/23 21:25 Dose: 4 mg Documented By: JUWAN Vital Signs Vital signs: Vital Signs - 8 hr 05/20/23 21:45 05/20/23 21:45 05/20/23 22:00 Pulse Rate 103 H 109 H Respiratory Rate 23 21 Blood Pressure 102/66 Pulse Oximetry 100 99 Oxygen Delivery Method 05/20/23 22:01 05/20/23 22:01 05/20/23 22:15 Pulse Rate 103 H Respiratory Rate 19 Blood Pressure 110/62 106/63 Pulse Oximetry 100 Oxygen Delivery Method Room Air 05/20/23 22:15 05/20/23 22:30 05/20/23 22:30 Pulse Rate 103 H 99 H Respiratory Rate 21 15 Blood Pressure 103/63 Pulse Oximetry 99 99 Oxygen Delivery Method 05/20/23 22:45 05/20/23 22:45 05/20/23 23:00 Pulse Rate 105 H Respiratory Rate 23 Blood Pressure 115/67 105/66 Pulse Oximetry 99 Oxygen Delivery Method 05/20/23 23:00 05/20/23 23:15 05/20/23 23:15 Pulse Rate 100 H 107 H Respiratory Rate 21 15 Blood Pressure 114/76 Pulse Oximetry 98 97 Oxygen Delivery Method 05/20/23 23:30 10/08/23 23:30 Pulse Rate 109 H Respiratory Rate 19 Blood Pressure 105/62 Pulse Oximetry 98 Oxygen Delivery Method Room Air MDM - OB/Uterine Contractions Lab Data 05/20/23 21:10 05/20/23 21:10 Labs: Lab Results 05/20/23 Range/Units 21:10 WBC 12.8 H (4.5-11.0) X10^3/uL RBC 3.31 L (4.0-5.2) X10^6/uL Hgb 10.1 L (12.0-16.0) g/dL Hct 29.1 L (36-46) % MCV 88.1 (80-100) fL MCH 30.7 (26-34) PG MCHC 34.8 (30-36) % RDW 12.7 (11.6-14.8) % Plt Count 258 (150-400) X10^3/uL Neut % (Auto) 80.0 H (50-75) % Lymph % (Auto) 12.5 L (25-40) % [place] % (Auto) 6.1 (3-14) % Eos % (Auto) 0.9 L (2-4) % Baso % (Auto) 0.5 (0-2) % Neut # (Auto) 15348 H (7494-7069) /uL Lymph # (Auto) 1600 (9095-0692) /uL [place] # (Auto) 800 (0-900) /uL Eos # (Auto) 100 (0-450) /uL Baso # (Auto) 100 (0-100) /uL Sodium 134 L (137-145) mmol/L Potassium 3.6 (3.4-5.1) mmol/L Chloride 108 H (98-107) mmol/L Carbon Dioxide 16 L (22-32) mmol/L BUN 10 (7-17) mg/dL Creatinine 0.50 L (0.52-1.04) mg/dL Estimated GFR > 60 (>60) mL/min BUN/Creatinine Ratio 20.0 (6-22) Glucose 102 H (70-100) mg/dL Calcium 8.1 L (8.4-10.2) mg/dL Total Bilirubin 0.5 (0.2-1.3) mg/dL AST 22 (14-36) IU/L ALT 17 (<35) IU/L Alkaline Phosphatase 51 (38-126) U/L Total Protein 6.3 (6.3-8.2) g/dL Albumin 3.5 (3.5-5.0) g/dL Globulin 2.8 (1.7-4.1) g/dL Albumin/Globulin Ratio 1.3 (1.0-2.8) HCG, Quant 30779 mIU/mL Imaging Data US - OB: Radiologist's Impression: PROCEDURE: US OB >= 14 WEEKS FETUS INDICATIONS: Miscarriage OUTSIDE/PRIOR DATING DATA: Last menstrual period (LMP): 03/06/2023 LMP-based estimated date of delivery (ELAINE): 12/11/2023 First dating scan (date and location): 05/15/2023 Estimated date of delivery (ELAINE) from first dating scan: Not applicable. TECHNIQUE: Real-time scanning was performed of the fetus, with image documentation. Endovaginal scanning: Performed COMPARISON: None. FINDINGS: General: Single irregular-appearing intrauterine gestational sac is seen in the lower uterine segment with fetus noted. [place]-rump length measures 0.6 cm. Estimated gestational age based on current study is 6 weeks, 2 days. Estimated gestational age based on initial study is 10 weeks, 5 days. IMPRESSION: Finding is consistent with intrauterine demise and likely spontaneous in progress. We strive to produce accurate, complete, and clear reports of imaging services. To assist us in improving patient care, this report was composed using standard report templates and voice recognition software. Therefore, it may contain abnormal punctuation, insertions and/or omissions. Occasional wrong-word or sound-alike substitutions may occur. Though we review the report and make efforts to correct it, we do recommend that the report be read carefully in proper context to recognize any text inaccuracies. Dictated by: dEis Satrkey M.D. on 05/20/2023 at 21:16 MDM Narrative Medical decision making narrative: Patient 27-year-old female presenting today with severe abdominal cramping vaginal bleeding and spontaneous miscarriage. Blood pressure initially was normal however it did drop into the 80s severe pain shaking. Pelvic exam there was vaginal blood but not significant I did not see any tissue. Passing small clots. Ultrasound confirms miscarriage in progress. Hemoglobin 10 hematocrit 29. After Toradol and morphine pain improved. She is monitored in the ED for 2 more hours. She continues to have some very mild bleeding cramping is basically gone. He will be monitored for products of conception but did not see any. She is able to stand up walk around overall feeling much better 2129 Dr. Sarkar, updated on patient's symptoms test results offers observation if needed.Cytotec also possible if needed to speed up process Patient offered observation this point feeling significantly better feels comfortable going home I think this is reasonable. Offered her Cytotec as well at this time she declines. She and follow-up with OB tomorrow. Discharge Plan Departure Patient Disposition: Home Clinical Impression: Miscarriage Instructions: DI for Miscarriage Activity Restrictions/Additional Instructions: *You have been diagnosed with miscarriage *What to do: So sorry for your loss. Expect to have bleeding and cramping at home. Bleeding should decrease. Along with clots as well. Please call OB 1st thing in the morning to schedule follow-up *Continue to take medications as directed Tylenol 1000 mg if needed every 6 hours Motrin 600 mg if needed for pain every 6 *Follow up with your primary care provider in 2-3 days or call [phone] *Return to ER if you should have passing out more than 2 pads an hour of blood loss dizziness lightheaded or any new, worsening or concerning symptoms Prescriptions: No Action prenat.vits,sergey,[id number] Tablet 1 tab PO DAILY Referrals: Victor Hugo Ulloa PA-C [Primary Care Provider] - Jess Guidry MD [Physician] - Lizzie Sarkar MD [Physician] - Gabo Del Cid MD [Physician] - Stand Alone Forms: Patient Portal/API
[2023-05-20 21:34] LABS: Alanine Aminotransferase 17 IU/L (<35); Albumin 3.5 g/dL (3.5-5.0); Albumin Globulin Ratio 1.3 (1.0-2.8); Alkaline Phosphatase 51 U/L (38-126); Aspartate Aminotransferase 22 IU/L (14-36); Bilirubin Total 0.5 mg/dL (0.2-1.3); Blood Urea Nitrogen 10 mg/dL (7-17); Calcium 8.1 mg/dL (8.4-10.2); Carbon Dioxide 16 mmol/L (22-32); Chloride 108 mmol/L (98-107); Estimated Glomerular Filt Rate > 60 mL/min (>60); Globulin 2.8 g/dL (1.7-4.1); Glucose 102 mg/dL (70-100); Potassium 3.6 mmol/L (3.4-5.1); Sodium 134 mmol/L (137-145); Total Protein 6.3 g/dL (6.3-8.2)
[2023-05-20 21:39] LABS: HEMOLYSIS 54 (0-50)
[2023-05-20 21:52] LABS: HCG Quantitative /Beta subunit 13865 mIU/mL
== END 2023-05-20 23:56 | disposition home or self-care (01) ==
PROVIDERS: Emergency Provider Emergency Medicine; PCP Physician Assistant
DX: O03.9 Complete or unspecified spontaneous abortion without complication (principal)
CPT/HCPCS: 76811; 76817; 80053; 84702; 85025; 96361; 96374; 96375; 99283; 99284; J1885; J2270

== ENCOUNTER → 2023-08-20 09:47 | Outpatient (CLI) | payer OTHER, SELFPAY ==
--- NOTE | 2023-08-20 09:48 | DI.US.S_ITS ---
PROCEDURE: US OB <= 14 WEEKS FETUS INDICATIONS: dating and viability OUTSIDE/PRIOR DATING DATA: Last menstrual period (LMP): 06/27/2023. LMP-based estimated date of delivery (ELAINE): 04/02/2024. First dating scan (date and location): 08/20/2023. Estimated date of delivery (ELAINE) from first dating scan: 03/31/2024. TECHNIQUE: Real-time scanning was performed of the fetus and maternal pelvic organs, with image documentation. COMPARISON: [facility], OB <= 14 WEEKS FETUS, 05/15/2023, 8:56. [facility], OB >= 14 WEEKS FETUS, 05/20/2023, 20:34. FINDINGS: Embryo: Organ-rump length measures 1.6 centimeters, consistent with 8 weeks and 0 days. A yolk sac is present. A small perigestational bleed is present measuring 1.0 x 1.1 x 0.7 centimeters. Heart rate: 165 beats per minute Maternal organs: Ovaries are within normal limits. IMPRESSION: 1. Single live intrauterine consistent with 8 weeks and 0 days. 2. Small perigestational bleed measuring 1.1 centimeters. We strive to produce accurate, complete, and clear reports of imaging services. To assist us in improving patient care, this report was composed using standard report templates and voice recognition software. Therefore, it may contain abnormal punctuation, insertions and/or omissions. Occasional wrong-word or sound-alike substitutions may occur. Though we review the report and make efforts to correct it, we do recommend that the report be read carefully in proper context to recognize any text inaccuracies. Dictated by: Benoit Bowen M.D. on 08/20/2023 at 13:04 Approved by: Benoit Bowen M.D. on 08/20/2023 at 13:06
== END ==
LOC: US 09:48
PROVIDERS: PCP Physician Assistant; Referring Provider Obstetrics & Gynecology; Visit Provider Obstetrics & Gynecology
DX: O46.8X1 Other antepartum hemorrhage, first trimester (principal); Z3A.08 8 weeks gestation of pregnancy
CPT/HCPCS: 76801

== ENCOUNTER → 2023-09-19 08:58 | Outpatient (CLI) | payer OTHER, SELFPAY ==
[2023-09-19 10:05] LABS: Add Manual Diff / Slide Review NO; Basophils Absolute Auto 0 /uL (0-100); Basophils Percent Auto 0.4 % (0-2); Eosinophils Absolute Auto 100 /uL (0-450); Eosinophils Percent Auto 0.5 % (2-4); Hematocrit 36.1 % (36-46); Hemoglobin 12.2 g/dL (12.0-16.0); Lymphocytes Absolute Auto 3800 /uL (1100-4500); Mean Corpuscular HGB Conc 33.9 % (30-36); Mean Corpuscular Hemoglobin 28.3 PG (26-34); Mean Corpuscular Volume 83.5 fL (80-100); Monocytes Absolute Auto 500 /uL (0-900); Monocytes Percent Auto 5.2 % (3-14); Neutrophils Absolute Auto 6200 /uL (1500-7000); Neutrophils Percent Auto 57.9 % (50-75); Platelet Count 267 X10^3/uL (150-400); Red Blood Cell Count 4.32 X10^6/uL (4.0-5.2); Red Cell Distribution Width 15.5 % (11.6-14.8); White Blood Cell Count 10.6 X10^3/uL (4.5-11.0)
[2023-09-19 10:29] LABS: Alanine Aminotransferase 18 IU/L (<35); Aspartate Aminotransferase 20 IU/L (14-36); BUN Creatinine Ratio 13.2 (6-22); Blood Urea Nitrogen 7 mg/dL (7-17); Estimated Glomerular Filt Rate > 60 mL/min (>60); Uric Acid 4.1 mg/dL (2.5-6.2)
[2023-09-19 12:04] LABS: Urine Chlamydia NOT DETECTED; Urine N gonorrhoeae NOT DETECTED
[2023-09-20 08:26] LABS: Varicella IgG Antibody 1400 index (Immune >165)
[2023-09-20 15:48] LABS: Hepatitis B Surface Antigen NEGATIVE s/c (NEGATIVE); Rubella Antibody IgG 49.9 IU/mL (>15)
[2023-09-20 16:12] LABS: HIV 1 & 2 Ab/Ag 4th Gen Combo NEGATIVE (NEGATIVE); Hep C Virus Ab w/Reflex Quant NEGATIVE s/c (NEGATIVE)
[2023-09-21 03:30] LABS: RPR Screen Non Reactive (Non Reactive)
== END ==
PROVIDERS: PCP Physician Assistant; Referring Provider Obstetrics & Gynecology; Visit Provider Obstetrics & Gynecology
DX: Z34.81 Encounter for supervision of other normal pregnancy, first trimester (principal); Z3A.12 12 weeks gestation of pregnancy; R82.998 Other abnormal findings in urine
CPT/HCPCS: 36415; 80055; 82565; 84450; 84460; 84520; 84550; 86787; 86803; 86850; 86900; 86901; 87086; 87389; 87491; 87591

== ENCOUNTER → 2023-10-17 11:45 | Outpatient (CLI) | payer OTHER, SELFPAY | PROVIDERS: PCP Physician Assistant; Visit Provider Obstetrics & Gynecology | DX: R82.998 Other abnormal findings in urine (principal); R31.9 Hematuria, unspecified | CPT/HCPCS: 87086 ==